=== PATIENT | female | born 1995 | race Caucasian/White ===

== ENCOUNTER 2020-07-01 21:38 | Emergency (ER) | payer OTHER ==
[~2020-07-01] VITALS: Ht 165.1 cm; Wt 89.4 kg
[2020-07-01 22:26] VITALS: BP 127/73
== END 2020-07-01 23:50 | disposition short-term general hospital (02) ==
LOC: ER 21:38
DX: T74.21XA Adult sexual abuse, confirmed, initial encounter (principal); F32.9 Major depressive disorder, single episode, unspecified; Y07.03 Male partner, perpetrator of maltreatment and neglect